=== PATIENT | female | born 1980 ===

== ENCOUNTER 2017-07-05 12:59 | Day surgery (SDC) | payer OTHER | END 2017-07-05 19:10 | disposition home or self-care (01) | LOC: CIR.AMB 12:59 | DX: O02.1 Missed abortion (principal) ==

== ENCOUNTER 2020-03-13 15:56 | Emergency (ER) | payer OTHER ==
[~2020-03-13] VITALS: Ht 162.6 cm; Wt 70.3 kg
== END 2020-03-13 18:17 | disposition home or self-care (01) ==
LOC: ER 15:56
DX: O46.8X1 Other antepartum hemorrhage, first trimester (principal); Z3A.01 Less than 8 weeks gestation of pregnancy

== ENCOUNTER 2024-12-26 07:00 | Day surgery (SDC) | payer OTHER ==
[2024-12-19 08:20] VITALS: BP 128/75
[2024-12-19 08:33] LABS: BASO % 0.8 % (0.1-1.2); EOS # 0.20 (0.04-0.54); EOS % 2.8 % (0.7-7.0); LYMPH # 2.32 (1.18-3.74); LYMPH % 32.2 % (19.3-53.1); MEAN PLATELET VOLUME 9.00 fl (9.4-12.4); MONO # 0.47 (0.24-0.82); MONO % 6.5 % (4.7-12.5); NEUT # 4.14 (1.56-6.13); NEUT % 57.4 % (34.0-71.1); RED CELL DISTRIBUTION WIDTH 12.2 % (11.6-14.4)
[2024-12-19 08:38] LABS: URINE APPEARANCE Clear; URINE BILIRRUBIN Negative (NEGATIVE); URINE BLOOD Negative; URINE COLOR Yellow; URINE GLUCOSE Negative (NEGATIVE); URINE KETONE Trace (NEGATIVE); URINE LEUKOCYTE Negative; URINE NITRATE Negative; URINE PROTEIN Negative (NEGATIVE); URINE UROBILINOGEN 0.2 E.U./dl
[2024-12-19 08:42] LABS: URINE BACTERIA 460.7 uL (0.0-1933); URINE EPITHELIAL CELLS 23.2 uL (0.0-38.8); URINE RBC 11.7 uL (0.0-20.8); URINE WBC 2.9 uL (0.0-23.2)
[2024-12-19 08:48] LABS: URINE CAST 0.43 uL (0.0-1.40)
[2024-12-19 09:05] LABS: INR 0.96
[2024-12-19 09:38] LABS: ALT/SGPT 16.0 U/L (12-78); AST/SGOT 8.0 U/L (15-37); BILIRUBIN TOTAL 0.35 mg/dL (0.3-1.2); BUN CREA RATIO 15.0 (7.0-25.0); CREATININE SERUM 0.61 mg/dL (0.55-1.02); GFR 106.55; GLOBULINA 3.0 G/DL (2.4-3.5); GLUCOSE FASTING 94.0 mg/dL (65-100); OSMOLALITY SERUM 280.0 MOSM/KG (275-295)
[~2024-12-26] VITALS: Ht 162.6 cm; Wt 69.4 kg
[~2024-12-26 07:00] MED LIST: MAXALT10 MG; [UNRECOGNIZED DRUG - OTHER]
[2024-12-26] MEDS ORDERED: CEFAZOLIN SODIUM 1,000 MG VIAL ONE (08:35)
[2024-12-26] MEDS ORDERED: POVIDONE-IODINE 118 ML BOTT TOP ONE (09:10)
[2024-12-26] MEDS ORDERED: DOXYCYCLINE HY100 M2 PO (16:18)
[2024-12-26] MEDS ORDERED: IBU600 MG PO (16:18)
[2024-12-27] MEDS ORDERED: CEFAZOLIN SODIUM 1,000 MG VIAL IV SCH (13:15)
== END 2024-12-26 20:40 | disposition home or self-care (01) ==
LOC: CIR.AMB 07:00
PROVIDERS: ATTEND Obstetrics & Gynecology
DX: D25.0 Submucous leiomyoma of uterus (principal); N84.0 Polyp of corpus uteri